=== PATIENT | male | born 1960 | race Caucasian/White ===

== ENCOUNTER 2019-02-04 08:32 | Outpatient (CLI) | payer MEDICAID ==
[~2019-02-04 08:32] MED LIST: ALBUTEROL INH; AZIT250T89 PO; CEFD300C37 PO; DOXY100T PO; ERGO500017 PO; FLUT1DIS5 IH; IPRA3AMP30 NPPB; PRED20TA PO; PRED5TAB PO
[2019-03-08] MEDS ORDERED: OLAN5TAB7 PO (19:09)
[2019-03-08] MEDS ORDERED: SPIRIVA (19:09)
[2019-03-14] MEDS ORDERED: PRED5TAB19 PO (21:37)
[2019-03-16] MEDS ORDERED: PRED10TA PO ×2 (10:09)
[2019-03-30] MEDS ORDERED: AMOX1TAB64 PO ×2 (11:35)
[2019-03-30] MEDS ORDERED: SERT50TA28 PO (11:35)
[2019-03-30] MEDS ORDERED: DOXY100T PO ×2 (11:35)
[2019-03-30] MEDS ORDERED: FURO40TA6 PO ×2 (11:35)
[2019-03-30] MEDS ORDERED: OLAN5TAB9 PO (11:35)
[2019-03-30] MEDS ORDERED: ACID1TAB7 PO (11:35)
[2019-03-30] MEDS ORDERED: BENZ-17 PO (11:35)
[2019-03-30] MEDS ORDERED: PRED10TA PO ×2 (11:35)
[2019-04-11] MEDS ORDERED: BUME1TAB21 PO (12:11)
[2019-04-11] MEDS ORDERED: CARV12.52 PO (12:11)
[2019-04-11] MEDS ORDERED: AMOX1TAB64 PO (12:11)
[2019-04-11] MEDS ORDERED: GUAI200T37 PO (12:11)
== END 2019-02-04 23:59 | disposition home or self-care (01) ==
LOC: CFH 08:32
PROVIDERS: ATTEND Nurse Practitioner
DX: J43.9 Emphysema, unspecified (principal); R91.8 Other nonspecific abnormal finding of lung field
CPT/HCPCS: G0297

== ENCOUNTER 2019-02-17 17:20 | Emergency (ER) | payer MEDICAID ==
[~2019-02-17] VITALS: Ht 175.3 cm; Wt 71.0 kg
[2019-02-17 17:21] VITALS: BP 139/96
== END 2019-02-17 20:04 ==
LOC: ED 17:46
DX: J44.1 Chronic obstructive pulmonary disease with (acute) exacerbation (principal); Z87.891 Personal history of nicotine dependence
CPT/HCPCS: 36415; 71045; 80048; 82040; 83605; 83880; 84484; 85025; 85610; 85730; 87081; 93005; 94640; 99284; J7512; J7620

== ENCOUNTER 2019-06-16 22:42 | Inpatient (IN) | payer MEDICAID ==
[~2019-06-16] VITALS: Ht 172.7 cm; Wt 89.4 kg
[~2019-06-16 22:42] MED LIST changes: +ACID1TAB7 PO; +AMOX1TAB64 PO; +BENZ-17 PO; +BUME1TAB21 PO; +CARV12.52 PO; +FURO40TA6 PO; +GUAI200T37 PO; +OLAN5TAB7 PO; +OLAN5TAB9 PO; +PRED10TA PO; +PRED5TAB19 PO; +SERT50TA28 PO; +SPIRIVA
[2019-06-16] MEDS ORDERED: MAGNESIUM SULFATE PMX 2GM/50ML 50 ML ONE (22:44)
[2019-06-16] MEDS ORDERED: ALBUTEROL 0.5%, 20ML ONE (22:48)
--- NOTE | 2019-06-16 22:48 | NUR ---
MAG SULFATE 2GRAMS STARTED PER VERBAL ORDER.
--- NOTE | 2019-06-16 22:49 | NUR ---
AWAITING BC PRIOR TO ABX ADMIN
[2019-06-16 23:00] LABS: BASOPHILS # (AUTO) 0.05 x10^3/uL (0-0.1); BASOPHILS % (AUTO) 1 % (0-1); EOSINOPHILS % (AUTO) 6 % (1-7); LYMPHOCYTES # (AUTO) 1.54 x10^3/uL (1-3.4); LYMPHOCYTES % (AUTO) 23 % (22-44); MD NO; MEAN CORPUSCULAR HEMOGLOBIN 30.1 pg (27.5-34.5); MEAN CORPUSCULAR HGB CONC 31.9 g/dL (33.2-36.2); MEAN CORPUSCULAR VOLUME 94.3 fL (81-97); MEAN PLATELET VOLUME 7.9 fL (7.4-10.4); MONOCYTES # (AUTO) 0.99 x10^3/uL (0.2-0.8); MONOCYTES % (AUTO) 15 % (2-9); NEUTROPHILS # (AUTO) 3.86 x10^3/uL (1.8-6.8); NEUTROPHILS % (AUTO) 56 % (42-75); PLATELET COUNT 372 x10^3/uL (130-400); RED BLOOD COUNT 4.47 x10^6/uL (4.38-5.82); RED CELL DISTRIBUTION WIDTH 16.1 % (9.4-14.8)
[2019-06-16] MEDS ORDERED: CEFTRIAXONE PMX 1GM/50ML 50 ML IVPB ONE (23:00)
[2019-06-16] MEDS ORDERED: MAGNESIUM SULFATE PMX 2GM/50ML 50 ML IV ONE (23:00)
[2019-06-16] MEDS ORDERED: AZITHROMYCIN 500 MG in SODIUM CHLORIDE 0.9% 250 ML IVPB ONE (23:00)
[2019-06-16] MEDS ORDERED: ALBUTEROL 0.5%, 20ML NPPB SCH (23:00)
[2019-06-16] MEDS ORDERED: CEFTRIAXONE PMX 1GM/50ML 50 ML ONE (23:07)
[2019-06-16 23:09] LABS: ALBUMIN 3.6 g/dL (3.4-5.0); ANION GAP 2 mmol/L (5-15); CALCIUM 8.8 mg/dL (8.5-10.1); CHLORIDE 104 mmol/L (98-107); CREATININE 0.86 mg/dL (0.7-1.3)
[2019-06-16 23:13] LABS: TROPONIN I < 0.015 ng/mL (0.000-0.045)
--- NOTE | 2019-06-16 23:16 | NUR ---
BCX2 DONE. ABX NOW INFUSING
--- NOTE | 2019-06-16 23:29 | NUR ---
PT ARGUMENTATIVE ABOUT US NOT HELPING HIM AND HIM HAVING TO DO ALL THE WORK. PT WAS EXPLAINED THE BIPAP AND THE MEDS. PT NOT RECEPTIVE TO TEACHINGS. PT WAS INFORMED TO TELL US IF HE FEELS HIS BREATHING IS GETTING WORSE AND WOULD LIKE TO BE INTUBATED. PT STATES HE DOES NOT FEEL HE NEEDS TO BE INTUBATED AT THIS TIME.
[2019-06-16] MEDS ORDERED: SODIUM CHLORIDE 0.9% 1,000ML IVBOLUS ONE (23:30)
--- NOTE | 2019-06-16 23:34 | NUR ---
PT FREQUENTLY DEMANDING WATER. PT INFORMED NPO UNTIL HIS BREATHING IMPROVES. MD TO BEDSIDE WHO ALSO INFORMS PT HE IS NPO.
[2019-06-16] MEDS ORDERED: ONDANSETRON 2MG/ML, 2ML ONE (23:43)
--- NOTE | 2019-06-16 23:45 | NUR ---
MD REMOVED BIPAP PER PT REQUEST. PT PLACED ON NASAL CANNULA.
--- NOTE | 2019-06-16 23:49 | NUR ---
PT BEING SWITCHED TO OPTIFLOW AT THIS TIME
[2019-06-17] MEDS ORDERED: ONDANSETRON ODT 4 MG PO ONE
[2019-06-17] MEDS ORDERED: ONDANSETRON 2MG/ML, 2ML IVPush ONE
--- NOTE | 2019-06-17 00:11 | NUR ---
PT NOW BACK ON BIPAP
--- NOTE | 2019-06-17 00:27 | NUR ---
ADMITTING MD AT BEDSIDE
--- NOTE | 2019-06-17 00:39 | NUR ---
ATTEMPTED TO CALL REPORT.
--- NOTE | 2019-06-17 00:45 | NUR ---
ATTEMPTED TO CALL REPORT AGAIN
[2019-06-17] MEDS ORDERED: hydrALAzine 20 MG/ML, 1ML IVPush PRN (01:00)
[2019-06-17] MEDS ORDERED: BISACODYL 10 MG SUPP PR PRN (01:00)
[2019-06-17] MEDS ORDERED: ONDANSETRON 2MG/ML, 2ML IVPush PRN (01:00)
[2019-06-17] MEDS ORDERED: POLYETHYLENE GLYCOL 17 GM PACKET PO PRN (01:00)
[2019-06-17] MEDS ORDERED: DOCUSATE 100 MG CAPSULE PO PRN (01:00)
[2019-06-17] MEDS ORDERED: ONDANSETRON ODT 4 MG PO PRN (01:00)
[2019-06-17] MEDS ORDERED: ACETAMINOPHEN 325 MG TABLET PO PRN (01:00)
[2019-06-17] MEDS ORDERED: FUROSEMIDE 20 MG/2 ML IV ONE (01:00)
[2019-06-17] MEDS ORDERED: ERGOCALCIFEROL 50,000 UNIT CAPSULE PO SCH (01:00)
[2019-06-17] MEDS ORDERED: PROMETHAZINE 25 MG/ML, 1ML IM PRN (01:00)
[2019-06-17] MEDS ORDERED: CEFTRIAXONE PMX 1GM/50ML 50 ML IV ONE (01:00)
[2019-06-17 01:07] LABS: FREE T4 (FREE THYROXINE) 0.77 ng/dL (0.76-1.46)
[2019-06-17 01:11] LABS: HEMOGLOBIN A1C 6.1 % (4.2-6.3)
[2019-06-17 01:30] VITALS: BP 152/85
[2019-06-17] MEDS: ENOXAPARIN 40 MG/0.4 ML SQ SCH (02:04)
[2019-06-17] MEDS: OLANZAPINE 5 MG TABLET PO SCH ×2 (02:04→19:43)
[2019-06-17] MEDS: methylPREDNISolone SOD SUCC 125 MG/2 ML IVPush SCH ×4 (02:04→19:43)
[2019-06-17] MEDS: OXYcodone IR 5MG TABLET PO PRN ×3 (02:18→19:56)
[2019-06-17] MEDS ORDERED: VANCOMYCIN PMX 1GM/200ML 200 ML IV ONE (02:30)
[2019-06-17] MEDS ORDERED: PHARMACOKINETIC CONSULTATION MC ONE (02:30)
[2019-06-17] MEDS ORDERED: PHARMACOKINETIC MONITORING MC PRN (02:30)
[2019-06-17] MEDS ORDERED: VANCOMYCIN PER PHARMACY MC PRN (02:30)
[2019-06-17] MEDS: PIPERACILLIN/TAZO/PMX 3.375GM 50 ML IV SCH ×4 (02:59→19:56)
[2019-06-17] MEDS: VANCOMYCIN 1,500 MG in SODIUM CHLORIDE 0.9% 250 ML IV SCH ×2 (02:59→15:03)
[2019-06-17 03:08] LABS: RAPID INFLUENZA A Negative (Negative); RAPID INFLUENZA B Negative (Negative)
[2019-06-17] MEDS: ALBUTEROL/IPRATROPIUM 2.5MG/0.5MG, 3 ML NPPB SCH ×5 (03:20→21:00)
[2019-06-17 04:30] VITALS: BP 110/65
[2019-06-17] MEDS: CARVEDILOL 12.5 MG TABLET PO SCH ×2 (05:22→18:00)
[2019-06-17] MEDS: GUAIFENESIN ER 600 MG TABLET PO SCH ×2 (08:02→19:43)
[2019-06-17] MEDS: OLANZAPINE 2.5 MG TABLET PO SCH (08:02)
[2019-06-17] MEDS: SERTRALINE 50MG TABLET PO SCH (08:03)
[2019-06-17] MEDS: BUMETANIDE 1 MG TABLET PO SCH (08:04)
[2019-06-17] MEDS: FAMOTIDINE 20 MG/2 ML IVPush SCH ×2 (08:05→19:43)
[2019-06-17 08:16] LABS: MEAN CORPUSCULAR HEMOGLOBIN 29.6 pg (27.5-34.5); MEAN CORPUSCULAR HGB CONC 31.9 g/dL (33.2-36.2); MEAN CORPUSCULAR VOLUME 92.7 fL (81-97); MEAN PLATELET VOLUME 7.5 fL (7.4-10.4); PLATELET COUNT 302 x10^3/uL (130-400); RED BLOOD COUNT 4.38 x10^6/uL (4.38-5.82); RED CELL DISTRIBUTION WIDTH 15.9 % (9.4-14.8)
[2019-06-17] MEDS: FUROSEMIDE 20 MG/2 ML IV SCH (08:27)
[2019-06-17 08:30] LABS: ALANINE AMINOTRANSFERASE 34 U/L (12-78); ALBUMIN 3.4 g/dL (3.4-5.0); ANION GAP 5 mmol/L (5-15); CALCIUM 8.9 mg/dL (8.5-10.1); CHLORIDE 103 mmol/L (98-107); CREATININE 0.89 mg/dL (0.7-1.3)
[2019-06-17 08:32] LABS: ALKALINE PHOSPHATASE 86 U/L (45-117); BILIRUBIN,TOTAL 0.4 mg/dL (0.2-1.0); TOTAL PROTEIN 7.2 g/dL (6.4-8.2)
[2019-06-17 08:39] LABS: BASOPHILS % (AUTO) 0 % (0-1); EOSINOPHILS # (AUTO) 0.04 x10^3/uL (0-0.4); EOSINOPHILS % (AUTO) 1 % (1-7); LYMPHOCYTES # (AUTO) 0.25 x10^3/uL (1-3.4); LYMPHOCYTES % (AUTO) 4 % (22-44); MD SCAN; MONOCYTES # (AUTO) 0.02 x10^3/uL (0.2-0.8); MONOCYTES % (AUTO) 0 % (2-9); NEUTROPHILS % (AUTO) 95 % (42-75)
[2019-06-17 10:40] LABS: TROPONIN I < 0.015 ng/mL (0.000-0.045)
[2019-06-17 14:57] LABS: TROPONIN I < 0.015 ng/mL (0.000-0.045)
[2019-06-17 19:46] VITALS: BP 115/86
[2019-06-17] MEDS ORDERED: CEFTRIAXONE PMX 2GM/50ML 50 ML IV SCH (23:00)
[2019-06-17] MEDS ORDERED: AZITHROMYCIN 500 MG in SODIUM CHLORIDE 0.9% 250 ML IV SCH (23:00)
[2019-06-18] MEDS: ENOXAPARIN 40 MG/0.4 ML SQ SCH (02:16)
[2019-06-18] MEDS: methylPREDNISolone SOD SUCC 125 MG/2 ML IVPush SCH ×2 (02:16→07:49)
[2019-06-18] MEDS: PIPERACILLIN/TAZO/PMX 3.375GM 50 ML IV SCH ×2 (02:16→07:49)
[2019-06-18] MEDS: VANCOMYCIN 1,500 MG in SODIUM CHLORIDE 0.9% 250 ML IV SCH (02:55)
[2019-06-18 04:48] LABS: ALANINE AMINOTRANSFERASE 30 U/L (12-78); ALBUMIN 3.5 g/dL (3.4-5.0); ANION GAP 8 mmol/L (5-15); CALCIUM 8.1 mg/dL (8.5-10.1); CHLORIDE 100 mmol/L (98-107); CREATININE 1.16 mg/dL (0.7-1.3)
[2019-06-18 04:50] LABS: ALKALINE PHOSPHATASE 76 U/L (45-117); BILIRUBIN,TOTAL 0.5 mg/dL (0.2-1.0); TOTAL PROTEIN 7.1 g/dL (6.4-8.2)
[2019-06-18 04:55] LABS: BASOPHILS % (AUTO) 0 % (0-1); EOSINOPHILS % (AUTO) 0 % (1-7); LYMPHOCYTES # (AUTO) 0.31 x10^3/uL (1-3.4); LYMPHOCYTES % (AUTO) 3 % (22-44); MD NO; MEAN CORPUSCULAR HEMOGLOBIN 30.3 pg (27.5-34.5); MEAN CORPUSCULAR HGB CONC 31.9 g/dL (33.2-36.2); MEAN CORPUSCULAR VOLUME 94.9 fL (81-97); MEAN PLATELET VOLUME 8.4 fL (7.4-10.4); MONOCYTES # (AUTO) 0.32 x10^3/uL (0.2-0.8); MONOCYTES % (AUTO) 3 % (2-9); NEUTROPHILS # (AUTO) 9.23 x10^3/uL (1.8-6.8); NEUTROPHILS % (AUTO) 94 % (42-75); PLATELET COUNT 333 x10^3/uL (130-400); RED BLOOD COUNT 4.07 x10^6/uL (4.38-5.82); RED CELL DISTRIBUTION WIDTH 16.6 % (9.4-14.8)
[2019-06-18 06:30] VITALS: BP 122/77
[2019-06-18] MEDS: ALBUTEROL/IPRATROPIUM 2.5MG/0.5MG, 3 ML NPPB SCH (06:32)
[2019-06-18] MEDS: BUMETANIDE 1 MG TABLET PO SCH (08:46)
[2019-06-18] MEDS: SERTRALINE 50MG TABLET PO SCH (08:46)
[2019-06-18] MEDS: CARVEDILOL 12.5 MG TABLET PO SCH ×3 (08:46→17:54)
[2019-06-18] MEDS: FAMOTIDINE 20 MG/2 ML IVPush SCH (08:46)
[2019-06-18] MEDS: GUAIFENESIN ER 600 MG TABLET PO SCH ×2 (08:47→20:45)
[2019-06-18] MEDS: OLANZAPINE 2.5 MG TABLET PO SCH (08:47)
[2019-06-18] MEDS: FUROSEMIDE 20 MG/2 ML IV SCH (08:47)
[2019-06-18] MEDS ORDERED: LORazepam 2 MG/ML, 1ML IVPush PRN (11:30)
[2019-06-18 11:55] VITALS: BP 121/89
[2019-06-18] MEDS: morphine SULFATE 10 MG/ML, 1ML IVPush PRN ×3 (12:27→20:50)
[2019-06-18] MEDS ORDERED: methylPREDNISolone SOD SUCC 125 MG/2 ML IVPush SCH (14:00)
[2019-06-18] MEDS: methylPREDNISolone SOD SUCC 40 MG/ML IVPush SCH ×2 (14:49→20:45)
[2019-06-18] MEDS: OXYcodone IR 5MG TABLET PO PRN (16:41)
[2019-06-18 16:42] VITALS: BP 122/77
[2019-06-18 20:09] VITALS: BP_SYST 86; BP_SYST 95; BP_DIAS 52; BP_DIAS 54
[2019-06-18] MEDS: OLANZAPINE 5 MG TABLET PO SCH (20:45)
[2019-06-19 01:00] VITALS: BP 100/64
[2019-06-19] MEDS: methylPREDNISolone SOD SUCC 40 MG/ML IVPush SCH ×2 (01:08→08:42)
[2019-06-19 01:15] VITALS: BP 104/64
[2019-06-19] MEDS ORDERED: ALBUTEROL SULFATE 2.5 MG/3 ML ONE (05:39)
[2019-06-19 06:53] VITALS: BP 126/98
[2019-06-19] MEDS: FUROSEMIDE 20 MG/2 ML IV SCH (08:43)
[2019-06-19] MEDS: CARVEDILOL 12.5 MG TABLET PO SCH (08:43)
[2019-06-19] MEDS: OLANZAPINE 2.5 MG TABLET PO SCH (08:43)
[2019-06-19] MEDS: BUMETANIDE 1 MG TABLET PO SCH (08:43)
[2019-06-19] MEDS: SERTRALINE 50MG TABLET PO SCH (08:44)
[2019-06-19] MEDS: GUAIFENESIN ER 600 MG TABLET PO SCH (08:44)
== END 2019-06-19 13:55 | disposition home or self-care (01) | DRG 133 ==
LOC: ED 22:56 → EDIP 06-17 00:11 → CCU 06-17 01:20 → ICU 06-17 07:10 → 4NW 06-18 11:33 → UNDODISIN 06-19 13:53
PROVIDERS: ADMIT Internal Medicine; ATTEND Internal Medicine
PROC: 5A09357 Assistance with Respiratory Ventilation, Less than 24 Consecutive Hours, Continuous Positive Airway Pressure (ICD-10-PCS; principal; 2019-06-16)
PROC: 5A09357 Assistance with Respiratory Ventilation, Less than 24 Consecutive Hours, Continuous Positive Airway Pressure (ICD-10-PCS; 2019-06-17)
PROC: 5A09357 Assistance with Respiratory Ventilation, Less than 24 Consecutive Hours, Continuous Positive Airway Pressure (ICD-10-PCS; 2019-06-18)
DX: J96.21 Acute and chronic respiratory failure with hypoxia (principal); I50.33 Acute on chronic diastolic (congestive) heart failure; J18.9 Pneumonia, unspecified organism; E87.2 Acidosis; K76.6 Portal hypertension; Z99.81 Dependence on supplemental oxygen; J43.9 Emphysema, unspecified; F41.9 Anxiety disorder, unspecified; J96.22 Acute and chronic respiratory failure with hypercapnia; Z66 Do not resuscitate; Z51.5 Encounter for palliative care; R73.9 Hyperglycemia, unspecified; T38.0X5A Adverse effect of glucocorticoids and synthetic analogues, initial encounter; Z87.891 Personal history of nicotine dependence; Z87.01 Personal history of pneumonia (recurrent); Z82.49 Family history of ischemic heart disease and other diseases of the circulatory system; Z86.14 Personal history of Methicillin resistant Staphylococcus aureus infection; Z82.3 Family history of stroke; Z80.6 Family history of leukemia; Y92.89 Other specified places as the place of occurrence of the external cause
CPT/HCPCS: 36415; 36600; 71045; 80048; 80053; 82040; 82803; 83036; 83605; 83735; 83880; 84439; 84443; 84484; 85025; 87040; 87081; 87400; 93005; 94640; 94660; G0378; J0456; J0696; J1650; J2405; J2543; J3370; J7611; J7620; J1940; J2060; J2270; J2920; J2930; J3475; J3490; J7030; J7050

== ENCOUNTER 2019-06-19 13:06 | Inpatient (IN) | payer OTHER ==
[~2019-06-19] VITALS: Ht 170.2 cm; Wt 89.4 kg
[2019-06-19] MEDS ORDERED: SCOPOLAMINE PATCH, 1.5MG PATCH.TD72 TD SCH (15:30)
[2019-06-19] MEDS ORDERED: ATROPINE OPHTH SOLN 1%, 5ML BC PRN (15:30)
[2019-06-19] MEDS ORDERED: MORPHINE SULFATE 4 MG/ML, 1ML IVPush PRN ×3 (15:30)
[2019-06-19] MEDS ORDERED: LORazepam 2 MG/ML, 1ML IVPush PRN (15:30)
[2019-06-19] MEDS ORDERED: ONDANSETRON 2MG/ML, 2ML IVPush PRN (15:30)
[2019-06-20] MEDS: BEER 12 OZ CAN PO SCH ×3 (08:55→19:56)
[2019-06-20] MEDS ORDERED: DIPHENHYDRAMINE 50 MG/ML, 1ML IVPush PRN (18:30)
[2019-06-20] MEDS: HALOPERIDOL 5 MG/ML IV SCH (19:16)
[2019-06-21] MEDS: HALOPERIDOL 5 MG/ML IV SCH ×5 (00:30→23:03)
[2019-06-21] MEDS: BEER 12 OZ CAN PO SCH ×4 (08:12→19:55)
== END 2019-06-22 05:15 | disposition expired | DRG 193 ==
LOC: 4NW 13:56
PROVIDERS: ADMIT Internal Medicine; ATTEND Internal Medicine
DX: J18.9 Pneumonia, unspecified organism (principal); I50.33 Acute on chronic diastolic (congestive) heart failure; J96.21 Acute and chronic respiratory failure with hypoxia; J96.22 Acute and chronic respiratory failure with hypercapnia; J44.0 Chronic obstructive pulmonary disease with (acute) lower respiratory infection; J44.1 Chronic obstructive pulmonary disease with (acute) exacerbation; F41.9 Anxiety disorder, unspecified; Z66 Do not resuscitate; Z51.5 Encounter for palliative care; Z22.322 Carrier or suspected carrier of Methicillin resistant Staphylococcus aureus; Z82.5 Family history of asthma and other chronic lower respiratory diseases; Z87.01 Personal history of pneumonia (recurrent); Z87.891 Personal history of nicotine dependence; Z99.81 Dependence on supplemental oxygen
CPT/HCPCS: G0378; J2270; J7060; J1200; J1630